=== PATIENT | female | born 2005 | race Caucasian/White ===

== ENCOUNTER 2024-06-01 21:21 | Emergency (ER) | payer OTHER ==
[~2024-06-01] VITALS: Ht 160 cm; Wt 134.7 kg
[2024-06-01 22:29] LABS: Source, Urine Clean Catch
[2024-06-01 22:46] LABS: Bilirubin, Urine Neg (Neg); Blood, Urine Neg (Neg); Glucose Qualitative, Urine Neg (Neg); Ketones, Urine Neg (Neg); Leukocyte Esterase, Urine 2+ (Neg); Nitrite, Urine Neg (Neg); Protein, Urine Neg (Neg); Specific Gravity, Urine 1.015 (1.003-1.022); Urobilinogen, Urine NORM (Normal); pH, Urine 6.5 (5.0-8.0)
[2024-06-01 22:54] LABS: Appearance, Urine Hazy (Clear); Color, Urine Yellow (P-Yellow)
[2024-06-01 22:56] LABS: Amorphous Light (0-Heavy); Bacteria Mod /hpf; Squamous Epithelial Cells Few /hpf (Few)
[2024-06-01] MEDS ORDERED: [UNRECOGNIZED DRUG - OTHER] (23:33)
[2024-06-01] MEDS ORDERED: METFORMIN HCL500 M3 PO (23:33)
[2024-06-02] MEDS ORDERED: CEPH500 PO (00:43)
[2024-06-02] MEDS ORDERED: Cephalexin Monohydrate 500 MG Cap PO ONE (00:45)
== END 2024-06-02 01:08 | disposition home or self-care (01) ==
LOC: ER 21:21
PROVIDERS: Student in an Organized Health Care Education/Training Program
DX: O23.41 Unspecified infection of urinary tract in pregnancy, first trimester (principal); E11.9 Type 2 diabetes mellitus without complications; Z3A.09 9 weeks gestation of pregnancy; Z68.43 Body mass index [BMI] 50.0-59.9, adult; Z79.84 Long term (current) use of oral hypoglycemic drugs; Z88.8 Allergy status to other drugs, medicaments and biological substances
CPT/HCPCS: 81001; 87086; 87147; 99284; A9270

== ENCOUNTER 2024-06-10 23:16 | Emergency (ER) | payer OTHER ==
[~2024-06-10] VITALS: Ht 160 cm; Wt 131.5 kg
[~2024-06-10 23:16] MED LIST: CEPH500 PO; METFORMIN HCL500 M3 PO; [UNRECOGNIZED DRUG - OTHER]
[2024-06-11 00:07] LABS: BASOPHILS ABSOLUTE AUTO 0.06 K/mm3 (0.00-0.23); BASOPHILS PERCENT AUTO 0 % (0-2); EOSINOPHILS ABSOLUTE AUTO 0.53 K/mm3 (0.00-0.68); EOSINOPHILS PERCENT AUTO 4 % (0-6); Hematocrit 40.5 % (33.0-51.0); IMMATURE GRAN ABSOLUTE AUTO 0.04 K/mm3 (0.00-0.10); IMMATURE GRAN PERCENT AUTO 0 % (0-1); LYMPHOCYTES ABSOLUTE AUTO 3.57 K/mm3 (0.84-5.20); LYMPHOCYTES PERCENT AUTO 27 % (21-46); MONOCYTES ABSOLUTE AUTO 0.88 K/mm3 (0.16-1.47); MONOCYTES PERCENT AUTO 7 % (4-13); Mean Corpuscular HGB 28.2 pg (26.0-34.0); Mean Corpuscular HGB Conc 34.6 g/dL (31.5-36.5); Mean Corpuscular Volume 82 fL (80-100); Mean Platelet Volume 9.3 fL (9.1-12.4); NEUTROPHILS ABSOLUTE AUTO 8.41 K/mm3 (1.96-9.15); NEUTROPHILS PERCENT AUTO 62 % (41-73); Platelet Count 295 K/mm3 (150-400); RDW Coefficient Variation 12.6 % (11.7-14.2); RDW Standard Deviation 37.2 fL (35.1-46.3); Red Blood Cell Count 4.96 M/mm3 (3.80-5.20); White Blood Cell Count 13.49 K/mm3 (4.00-11.30)
[2024-06-11 00:22] LABS: Albumin/Globulin Ratio 0.7 (0.8-1.8); Bilirubin, Total 0.2 mg/dL (0.1-1.0); Bun/Creatinine Ratio 20.7 (12.0-20.0); Calcium, Blood 9.4 mg/dL (8.5-10.1); Creatinine, Blood 0.58 mg/dL (0.40-1.00); Globulin, Blood 4.1 g/dL (2.2-4.0); Potassium, Blood 3.9 mmol/L (3.5-5.5); Total Protein, Blood 7.1 g/dL (6.4-8.2)
[2024-06-11 00:40] LABS: Source, Urine Clean Catch
[2024-06-11 00:46] LABS: Bilirubin, Urine Neg (Neg); Blood, Urine Neg (Neg); Glucose Qualitative, Urine Neg (Neg); Ketones, Urine Neg (Neg); Leukocyte Esterase, Urine Neg (Neg); Nitrite, Urine Neg (Neg); Protein, Urine 1+ (Neg); Specific Gravity, Urine 1.015 (1.003-1.022); Urobilinogen, Urine NORM (Normal)
[2024-06-11 01:00] LABS: Appearance, Urine Clear (Clear); Color, Urine Pale Yellow (P-Yellow)
== END 2024-06-11 01:45 | disposition home or self-care (01) ==
LOC: ER 23:16
PROVIDERS: Emergency Medicine
DX: O20.0 Threatened abortion (principal); E11.9 Type 2 diabetes mellitus without complications; Z3A.10 10 weeks gestation of pregnancy; Z79.84 Long term (current) use of oral hypoglycemic drugs; Z88.8 Allergy status to other drugs, medicaments and biological substances
CPT/HCPCS: 76801; 76817; 80053; 84702; 84703; 85025; 86850; 86900; 86901; 99284-25

== ENCOUNTER → 2024-08-11 | Outpatient (CLI) | payer OTHER ==
[2024-08-11 16:10] LABS: Creatinine Urine 55.2 mg/dL (27.00-270.00); Protein, Urine Quantitative 6.6 mg/dL (0.0-11.9)
== END | disposition home or self-care (01) ==
LOC: LAB 13:55 → LAB SHORT 13:55
PROVIDERS: Family Medicine
DX: O24.111 Pre-existing type 2 diabetes mellitus, in pregnancy, first trimester (principal)
CPT/HCPCS: 81050; 82570; 84156

== ENCOUNTER 2024-08-28 06:25 | Emergency (ER) | payer OTHER ==
[~2024-08-28] VITALS: Ht 160 cm; Wt 131.5 kg
[2024-08-28] MEDS ORDERED: INSULIN GL100 UNIT/2 (07:05)
[2024-08-28] MEDS ORDERED: Acetaminophen 500 MG Tab PO ONE (07:05)
[2024-08-28] MEDS ORDERED: Ondansetron 4 MG SoluTab SL ONE (07:05)
[2024-08-28 07:12] LABS: Source, Urine Clean Catch
[2024-08-28 07:17] LABS: Appearance, Urine Hazy (Clear); Blood, Urine 5+ (Neg); Glucose Qualitative, Urine Neg (Neg); Ketones, Urine Neg (Neg); Leukocyte Esterase, Urine 3+ (Neg); Nitrite, Urine Pos (Neg); Protein, Urine 3+ (Neg); Specific Gravity, Urine 1.005 (1.003-1.022); Urobilinogen, Urine 2+ (Normal)
[2024-08-28 07:26] LABS: Bacteria Many /hpf; Bilirubin, Urine 1+ (Neg); Color, Urine Orange (P-Yellow); White Blood Cells, Urine 25-50 /hpf (0-5)
[2024-08-28 07:27] LABS: Squamous Epithelial Cells Mod /hpf (Few)
[2024-08-28] MEDS ORDERED: Cefpodoxime Proxetil 200 MG Tab PO ONE (07:45)
[2024-08-28] MEDS ORDERED: ONDA4ODT MM ×2 (07:46→07:51)
[2024-08-28] MEDS ORDERED: CEFP200 PO ×2 (07:46→07:51)
== END 2024-08-28 09:10 | disposition home or self-care (01) ==
LOC: ER 06:25
PROVIDERS: Student in an Organized Health Care Education/Training Program
DX: O23.42 Unspecified infection of urinary tract in pregnancy, second trimester (principal); N39.0 Urinary tract infection, site not specified; Z3A.21 21 weeks gestation of pregnancy; O24.312 Unspecified pre-existing diabetes mellitus in pregnancy, second trimester; Z88.8 Allergy status to other drugs, medicaments and biological substances; Z79.84 Long term (current) use of oral hypoglycemic drugs; Z79.4 Long term (current) use of insulin; Z79.899 Other long term (current) drug therapy
CPT/HCPCS: 76815; 76817; 81001; 87077; 87086; 87186; 99284-25; A9270

== ENCOUNTER → 2024-11-25 | Outpatient (CLI) | payer OTHER ==
[~2024-11-25] MED LIST changes: +CEFP200 PO; +INSULIN GL100 UNIT/2; +ONDA4ODT MM
[2024-11-25 19:35] LABS: Protein, Urine Random 30.7 mg/dL (0.0-11.9); Protein/Creat Ratio, Ur Random 0.3
== END ==
LOC: LAB SHORT 09:30 → LAB 09:30
PROVIDERS: Family Medicine
DX: O16.9 Unspecified maternal hypertension, unspecified trimester (principal)
CPT/HCPCS: 82570; 84156

== ENCOUNTER → 2024-11-29 | Outpatient (CLI) | payer OTHER ==
[2024-11-29 10:30] LABS: Source, Urine Clean Catch
[2024-11-29 13:05] LABS: Appearance, Urine Hazy (Clear); Bilirubin, Urine Neg (Neg); Blood, Urine Neg (Neg); Color, Urine Yellow (P-Yellow); Glucose Qualitative, Urine Neg (Neg); Ketones, Urine Neg (Neg); Leukocyte Esterase, Urine 1+ (Neg); Nitrite, Urine Neg (Neg); Protein, Urine Neg (Neg); Specific Gravity, Urine 1.015 (1.003-1.022); Urobilinogen, Urine NORM (Normal); pH, Urine 6.5 (5.0-8.0)
[2024-11-29 13:19] LABS: Bacteria Many /hpf; Red Blood Cells, Urine 0-2 /hpf (0-2); Squamous Epithelial Cells Few /hpf (Few)
[2024-11-29 14:24] LABS: Bacterial Vaginosis PCR Negative (NEGATIVE); Candida Group, PCR NOT DETECTED (NOT DETECT); Candida glabrata-krusei, PCR NOT DETECTED (NOT DETECT)
== END | disposition home or self-care (01) ==
LOC: LAB 10:12 → LAB SHORT 10:12
PROVIDERS: Family Medicine
DX: N76.0 Acute vaginitis (principal); R30.9 Painful micturition, unspecified; B96.89 Other specified bacterial agents as the cause of diseases classified elsewhere
CPT/HCPCS: 81001; 81515; 87077; 87086; 87186

== ENCOUNTER 2024-12-15 13:52 | Inpatient (IN) | payer OTHER ==
[2024-12-15] VITALS (9 sets, daily range): BP systolic 130–157; BP diastolic 74–95
[~2024-12-15] VITALS: Ht 160 cm; Wt 147.9 kg
[2024-12-15] MEDS ORDERED: FentaNYL 2mcg/ml-Bup 0.1% Epd 250 ML EPI PRN (14:50)
[2024-12-15] MEDS ORDERED: ePHEDrine Sulfate 50 MG/ML 1ML Injection XX PRN (14:50)
[2024-12-15] MEDS ORDERED: Carboprost Tromethamine 250 MCG/ML 1ML Amp IM PRN (14:50)
[2024-12-15] MEDS ORDERED: Methylergonovine Maleate 0.2MG / ML 1ML Amp IM PRN (14:50)
[2024-12-15] MEDS ORDERED: Tranexamic Acid 100 ML IV SCH (14:50)
[2024-12-15] MEDS ORDERED: OXYTOCIN/RINGER'S LACTATE 500 ML IV PRN (14:50)
[2024-12-15] MEDS ORDERED: Oxytocin 10 Unit / ML Vial IM PRN (14:50)
[2024-12-15] MEDS ORDERED: Misoprostol 200 MCG Tab BC PRN (14:50)
[2024-12-15] MEDS ORDERED: Misoprostol 200 MCG Tab PR PRN (14:50)
[2024-12-15] MEDS ORDERED: Lactated Ringer's 1,000 ML IV PRN ×3 (14:50→19:20)
[2024-12-15] MEDS ORDERED: FentaNYL Citrate 50 MCG/ML 2 ML Injection IV PRN (14:50)
[2024-12-15] MEDS ORDERED: OXYTOCIN/RINGER'S LACTATE 500 ML IV SCH (14:50)
[2024-12-15] MEDS ORDERED: Lactated Ringer's 1,000 ML IV SCH ×3 (14:50)
[2024-12-15] MEDS ORDERED: Penicillin G Potassium 5,000,000 UNITS in NS 250 ML IV ONE (14:55)
[2024-12-15] MEDS ORDERED: Ondansetron HCl 2 MG / ML 2ML Vial IV PRN (14:55)
[2024-12-15] MEDS ORDERED: Calcium Carbonate 500 MG Tab Chew PO SCH (14:55)
[2024-12-15] MEDS ORDERED: Acetaminophen 500 MG Tab PO PRN (14:55)
[2024-12-15 15:06] LABS: BASOPHILS ABSOLUTE AUTO 0.03 K/mm3 (0.00-0.23); BASOPHILS PERCENT AUTO 0 % (0-2); EOSINOPHILS ABSOLUTE AUTO 0.13 K/mm3 (0.00-0.68); EOSINOPHILS PERCENT AUTO 1 % (0-6); Hematocrit 36.4 % (33.0-51.0); Hemoglobin 12.5 g/dL (11.5-16.0); IMMATURE GRAN ABSOLUTE AUTO 0.05 K/mm3 (0.00-0.10); IMMATURE GRAN PERCENT AUTO 1 % (0-1); LYMPHOCYTES ABSOLUTE AUTO 2.08 K/mm3 (0.84-5.20); LYMPHOCYTES PERCENT AUTO 23 % (21-46); MONOCYTES ABSOLUTE AUTO 0.87 K/mm3 (0.16-1.47); MONOCYTES PERCENT AUTO 9 % (4-13); Mean Corpuscular HGB 29.1 pg (26.0-34.0); Mean Corpuscular HGB Conc 34.3 g/dL (31.5-36.5); Mean Corpuscular Volume 85 fL (80-100); Mean Platelet Volume 10.4 fL (9.1-12.4); NEUTROPHILS PERCENT AUTO 66 % (41-73); Platelet Count 219 K/mm3 (150-400); RDW Coefficient Variation 13.1 % (11.7-14.2); RDW Standard Deviation 39.9 fL (35.1-46.3); Red Blood Cell Count 4.29 M/mm3 (3.80-5.20); White Blood Cell Count 9.26 K/mm3 (4.00-11.30)
[2024-12-15] MEDS ORDERED: LABE100 PO (15:14)
[2024-12-15] MEDS ORDERED: HUMULIN N100 UNIT/6 SC (15:14)
[2024-12-15] MEDS ORDERED: METO10 PO (15:15)
[2024-12-15] MEDS ORDERED: OMEP20ER (15:15)
[2024-12-15] MEDS ORDERED: REGLAN1013 PO (15:17)
[2024-12-15] MEDS ORDERED: Insulin Human Regular 100 UNIT in NS 100 ML IV SCH (15:25)
[2024-12-15 16:58] LABS: Albumin, Blood 2.6 g/dL (3.4-5.0); Albumin/Globulin Ratio 0.6 (0.8-1.8); Bilirubin, Total 0.4 mg/dL (0.1-1.0); Bun/Creatinine Ratio 27.2 (12.0-20.0); Calcium, Blood 9.3 mg/dL (8.5-10.1); Creatinine, Blood 0.52 mg/dL (0.40-1.00); Globulin, Blood 4.4 g/dL (2.2-4.0)
[2024-12-15] MEDS ORDERED: albuterol sulfate HF INH (17:29)
[2024-12-15] MEDS ORDERED: ASPI81CH PO (17:30)
[2024-12-15] MEDS ORDERED: INSULIN ASPART 100 UNIT/ML SC (17:32)
[2024-12-15] MEDS ORDERED: OMEP20ER PO (17:33)
[2024-12-15] MEDS ORDERED: [UNRECOGNIZED DRUG - OTHER] PO (17:34)
[2024-12-15] MEDS ORDERED: Albuterol HFA200 ACT/6.7 GM INH INH PRN (17:35)
[2024-12-15] MEDS ORDERED: MetFORMIN HCl 500 mg PO SCH (17:36)
[2024-12-15] MEDS ORDERED: Penicillin G Potassium 2,500,000 UNITS in Dextrose 5% 100 ML IV SCH (19:00)
[2024-12-15] MEDS ORDERED: Insulin NPH 100 Unit / ML 10ML Vial SC ONE (21:00)
[2024-12-15] MEDS ORDERED: Labetalol HCL 100 MG TAB PO SCH (21:00)
[2024-12-15] MEDS ORDERED: MetFORMIN HCl 500 mg PO ONE (22:05)
[2024-12-15] MEDS ORDERED: NS 250 ML IV PRN (23:10)
[2024-12-15] MEDS ORDERED: FentaNYL Citrate 50 MCG/ML 2 ML Injection ONE (23:50)
[2024-12-16] VITALS (54 sets, daily range): BP systolic 108–163; BP diastolic 52–100
[2024-12-16] MEDS ORDERED: Naloxone HCl 0.4MG / ML 1ML Vial IV PRN (00:50)
[2024-12-16] MEDS ORDERED: Ondansetron HCl 2 MG / ML 2ML Vial IV PRN (00:50)
[2024-12-16] MEDS ORDERED: ePHEDrine Sulfate 50 MG/ML 1ML Injection IV PRN (00:50)
[2024-12-16] MEDS ORDERED: DiphenhydrAMINE HCl 50 MG/ML 1ML Vial IV PRN (00:50)
[2024-12-16] MEDS ORDERED: Metoclopramide HCl 5MG / ML 2ML Vial IV PRN (00:55)
[2024-12-16] MEDS ORDERED: GuaiFENesin 600 MG TabCR PO PRN (02:05)
[2024-12-16] MEDS ORDERED: Prenatal Vit/FE Fumarate/FA 1 Tab PO SCH (09:00)
[2024-12-16] MEDS ORDERED: Penicillin G Potassium 2,500,000 UNITS in Dextrose 5% 100 ML IV SCH (10:00)
[2024-12-16 13:38] LABS: PCO2 Cord - Arterial 59.5 mmHg (40-50); PO2 Cord - Arterial 18.1 mmHg (16-20)
[2024-12-16 13:41] LABS: PCO2 Cord - Venous 37.6 mmHg (40-50); PO2 Cord - Venous 33.8 mmHg (28-32); pH Umbilical Cord - Venous 7.29 (7.26-7.35)
[2024-12-16] MEDS ORDERED: Lactated Ringer's 1,000 ML IV SCH (13:55)
[2024-12-16] MEDS ORDERED: Measles/Mumps/Rubella Vaccine 0.5 ML Vial SC ONE (13:55)
[2024-12-16] MEDS ORDERED: Acetaminophen 325 MG TABLET PO PRN (14:00)
[2024-12-16] MEDS ORDERED: Lanolin Cream TOP PRN (14:00)
[2024-12-16] MEDS ORDERED: Benzocaine Topical Anesthetic Spray 60GM TOP PRN (14:00)
[2024-12-16] MEDS ORDERED: Witch Hazel/Glycerin PADS TOP PRN (14:00)
[2024-12-16] MEDS ORDERED: Polyethylene Glycol 3350 17 gm PO PRN (14:00)
--- NOTE | 2024-12-16 14:05 | NUR ---
ANESTHESIA NOTE FIRST EPIDURAL PLACED BY ROSA 12/16/24 CATH - 0019 PUMP START - 23 END - 228 CATH REMOVED TIP INTACT [id number]
[2024-12-16] MEDS ORDERED: Ketorolac Tromethamine 30mg Vial IV PRN ×2 (15:10→15:25)
[2024-12-16] MEDS ORDERED: Insulin Regular 100 UNIT/ML 10ML Vial SC SCH (16:30)
[2024-12-16] MEDS ORDERED: Ketorolac Tromethamine 30mg Vial IV SCH (18:00)
[2024-12-16] MEDS ORDERED: Labetalol HCL 100 MG TAB PO SCH (21:00)
[2024-12-17 03:38] VITALS: BP 125/65
[2024-12-17 06:28] LABS: BASOPHILS ABSOLUTE AUTO 0.01 K/mm3 (0.00-0.23); BASOPHILS PERCENT AUTO 0 % (0-2); EOSINOPHILS ABSOLUTE AUTO 0.05 K/mm3 (0.00-0.68); EOSINOPHILS PERCENT AUTO 1 % (0-6); Hematocrit 32.7 % (33.0-51.0); Hemoglobin 11.1 g/dL (11.5-16.0); IMMATURE GRAN ABSOLUTE AUTO 0.06 K/mm3 (0.00-0.10); IMMATURE GRAN PERCENT AUTO 1 % (0-1); LYMPHOCYTES ABSOLUTE AUTO 2.17 K/mm3 (0.84-5.20); LYMPHOCYTES PERCENT AUTO 23 % (21-46); MONOCYTES ABSOLUTE AUTO 0.98 K/mm3 (0.16-1.47); MONOCYTES PERCENT AUTO 10 % (4-13); Mean Corpuscular HGB 28.8 pg (26.0-34.0); Mean Corpuscular HGB Conc 33.9 g/dL (31.5-36.5); Mean Corpuscular Volume 85 fL (80-100); Mean Platelet Volume 9.7 fL (9.1-12.4); NEUTROPHILS ABSOLUTE AUTO 6.23 K/mm3 (1.96-9.15); NEUTROPHILS PERCENT AUTO 66 % (41-73); Platelet Count 174 K/mm3 (150-400); RDW Coefficient Variation 13.1 % (11.7-14.2); RDW Standard Deviation 39.7 fL (35.1-46.3); Red Blood Cell Count 3.86 M/mm3 (3.80-5.20)
[2024-12-17 07:41] VITALS: BP 134/75
[2024-12-17] MEDS ORDERED: Prenatal Vit/FE Fumarate/FA 1 Tab PO SCH (09:00)
[2024-12-17] MEDS ORDERED: Ibuprofen 400 MG Tab PO PRN (12:00)
[2024-12-17 14:40] VITALS: BP 159/91
--- NOTE | 2024-12-17 14:57 | NUR ---
DISCHARGE READY TO DC HOME. VERBALIZES UNDERSTANDING OF DC INSTRUCTIONS AND FOLLOW UP APPOINTMENTS. THEY BOTH LIVE WITH HIS MOTHER WHO WILL BE OF GREAT ASSISTANCE TO THEM. ALL QUESTIONS ANSWERED. WILL DC HOME WITH DONOR BREAST MILK TO TOP OFF WITH AFTER BREAST FEEDING. INSTRUCTED THAT IF BOTTLE FEEDING THEN NEED TO PUMP TO GET MILK TO COME IN. PARENTS STATE THEY HAVE FORMULA AT HOME IF MILK DOESNT COME IN WELL. LOCHIA SCANT. STABLE. WILL CONTINUE HOME MEDS AND CBG CHECKS PER DR HAIRSTON. PT VERBALIZES UNDERSTANDING. CARING FOR SELF AND BABY INDEPENDANTLY AND HAS BF VERY WELL IN FOOTBALL HOLD.
== END 2024-12-17 15:45 | disposition home or self-care (01) | DRG 807 ==
LOC: OBS 13:52 → BC 13:52 → OBS 14:05 → BC 14:10
PROVIDERS: ADMIT Family Medicine
PROC: 10E0XZZ Delivery of Products of Conception, External Approach (ICD-10-PCS; principal; 2024-12-16)
PROC: 4A033R1 Measurement of Arterial Saturation, Peripheral, Percutaneous Approach (ICD-10-PCS; 2024-12-16)
PROC: 0KQM0ZZ Repair Perineum Muscle, Open Approach (ICD-10-PCS; 2024-12-16)
PROC: 3E033VJ Introduction of Other Hormone into Peripheral Vein, Percutaneous Approach (ICD-10-PCS; 2024-12-16)
PROC: 10907ZC Drainage of Amniotic Fluid, Therapeutic from Products of Conception, Via Natural or Artificial Opening (ICD-10-PCS; 2024-12-16)
PROC: 3E0R3BZ Introduction of Anesthetic Agent into Spinal Canal, Percutaneous Approach (ICD-10-PCS; 2024-12-16)
PROC: 00HU33Z Insertion of Infusion Device into Spinal Canal, Percutaneous Approach (ICD-10-PCS; 2024-12-16)
DX: O13.4 Gestational [pregnancy-induced] hypertension without significant proteinuria, complicating childbirth (principal); Z37.0 Single live birth; O24.12 Pre-existing type 2 diabetes mellitus, in childbirth; Z3A.37 37 weeks gestation of pregnancy; Z90.49 Acquired absence of other specified parts of digestive tract; O99.824 Streptococcus B carrier state complicating childbirth; O99.214 Obesity complicating childbirth; J06.9 Acute upper respiratory infection, unspecified; Z88.8 Allergy status to other drugs, medicaments and biological substances; O99.334 Smoking (tobacco) complicating childbirth; O99.344 Other mental disorders complicating childbirth; O66.0 Obstructed labor due to shoulder dystocia; F12.91 Cannabis use, unspecified, in remission; F41.8 Other specified anxiety disorders; F17.290 Nicotine dependence, other tobacco product, uncomplicated; O99.52 Diseases of the respiratory system complicating childbirth; O99.62 Diseases of the digestive system complicating childbirth; J45.20 Mild intermittent asthma, uncomplicated; K21.9 Gastro-esophageal reflux disease without esophagitis; Z79.4 Long term (current) use of insulin; Z79.84 Long term (current) use of oral hypoglycemic drugs; Z79.82 Long term (current) use of aspirin; Z79.899 Other long term (current) drug therapy; O71.82 Other specified trauma to perineum and vulva
CPT/HCPCS: 36415; 51702; 80053; 82803; 82947; 83036; 85025; 86850; 86900; 86901; 86923; 94640; 94664; 94760; A9270; J1815; J1885; J2405; J2540; J2590; J3010; J7050; J7120

== ENCOUNTER → 2025-01-31 | Outpatient (CLI) | payer OTHER ==
[~2025-01-31] MED LIST changes: +ASPI81CH PO; +HUMULIN N100 UNIT/6 SC; +INSULIN ASPART 100 UNIT/ML SC; +LABE100 PO; +METO10 PO; +OMEP20ER; +OMEP20ER PO; +REGLAN1013 PO; +[UNRECOGNIZED DRUG - OTHER] PO; +albuterol sulfate HF INH
== END ==
LOC: LAB SHORT 17:30 → LAB 17:30
PROVIDERS: Family Medicine
DX: Z30.9 Encounter for contraceptive management, unspecified (principal)
CPT/HCPCS: G0123